=== PATIENT | male | born 1975 | race Caucasian/White ===

== ENCOUNTER 2016-07-07 08:14 | Inpatient (IN) | payer MEDICARE, MEDICAID ==
[~2016-07-07] VITALS: Ht 185.4 cm; Wt 98.0 kg
[~2016-07-07 08:14] MED LIST: MULT-666 PO; OXYC20TA4 PO; OXYC40TA46 PO
[2016-07-07 08:18] VITALS: BP 160/107; PULSE 109; RESP 18; O2SAT 97
--- NOTE | 2016-07-07 08:27 | ED.REPORT ---
HPI-Abd Pain M 40 and Over Date of Service July 07, 2016 ED Provider: Connor Valdivia MD 40 year old male with an extensive GI history notable for Crohn's disease, followed by Dr. Workman, presents to the ER complaining of four days of nausea and vomiting. He also reports new upper abdominal pain that is burning and pressure in character, and two days of constipation. Patient denies fever. He is well known to the emergency department, with a history of visits too numerous to count. His pain medications include Fentanyl 50mcg patch every three days, 15mg oxycodone PO five times daily, though he has been unable to take any oral medications in recent days due to current symptoms. Lately he has been trying marijuana to treat his Crohn's symptoms. Nursing Notes Stated Complaint: VOMITING/CROHNS DISEASE Chief Complaint: Male Abdominal Pain Nursing Notes Reviewed: Yes Allergies: Coded Allergies: Contrast Media (Verified Allergy, Severe, ANAPHYLAXIS, 01/19/16) NSAIDS (Non-Steroidal Anti-Inflamma (Verified Allergy, Severe, RESP. DISTRESS (PARTICULARLY IBUPROFEN), 01/19/16) Penicillins (Verified Allergy, Severe, RENAL FAILURE, 01/19/16) Sulfa (Sulfonamide Antibiotics) (Verified Allergy, Severe, hives, 01/19/16) iodine (Verified Allergy, Severe, anaphylaxis, 01/19/16) ketorolac (Verified Allergy, Severe, N/V, RAPID HR, RASH, 01/19/16) ondansetron HCl (Verified Allergy, Severe, fells like im crawling out of my skin, 01/19/16) metoclopramide HCl (Verified Allergy, Mild, JITTERY, 01/19/16) Iodipamide (Verified Allergy, Unknown, UNKNOWN, 01/19/16) ondansetron (Verified Adverse Reaction, Unknown, 01/19/16) Scheduled Multivitamin (Once Daily) 1 Each Tablet 1 EACH PO DAILY Oxycodone ER (Oxycontin) 40 Mg Tab.er.12h 40 MG PO BID Scheduled PRN oxyCODONE (oxyCODONE) 20 Mg Tablet 10-20 MG PO q4-6 hours PRN PRN For Pain General Time Seen by MD: 08:25 Chief Complaint Other (Vomiting) Hx Obtained From: Patient Arrived By: Walk-in Sudden in Onset?: No Onset Occurred: 4 days ago Symptom Duration: Since onset Location: : Abdomen upper Quality: Pressure, Sharp Past Medical History Past Medical History Notes: [facility] his pain medication Gastroenterology: Dr. Workman Past Medical History Past Medical History and accompanying surgical history 1. Crohn's disease since 2003 on Humira, followed by Dr Workman. a. High-grade structuring s/p 5 stricturoplasties of ileum. b. Right hemicolectomy with anastomosis by Dr. Orlando Hood (03/11/03). c. Resection of terminal ileum & proximal transverse colon with anastomosis, repair of enteroenteric fistula, small bowel stricturoplasty, and lysis of adhesions by Dr. Eli Hood (06/11/03). d. History of multiple small bowel obstructions related to adhesions s/p abdominal exploration and lysis of adhesions by Dr. Eli Hood on and 05/06/05 and 09/29/05. e. History of colon perforation after colonoscopy 2006. f. Colonoscopy (November 2012) by Dr Workman: Biopsies showed granuloma in random right colon biopsies with some mild crypt architectural distortion, left colon had an erosion and showed chronic colitis that was moderately active. His anastomosis showed ulceration with moderate chronic active inflammation and granulation tissue. 2. IV access procedures. a. Left subclavian Groshong placement by Dr. Eli Hood (04/16/03) and removal due to K. pneumonia and Coag neg Staph bacteremia (12/10/05). b. Right subclavian central line (12/21/05). c. Left double lumen subclavian Port-A-Cath (12/27/05) and due to E. faecalis, E. coli and E. cloacae bacteremia (01/20/06). d. Left internal jugular central venous catheter with power port, intraoperative fluoroscopy with interpretation by Dr. Carlos Umanzor (04/26/12). 3. Chronic pain with narcotic habituation, followed by [facility]. 4. History of MRSA line infection. 5. History of vertebral osteomyelitis. 6. Chronic anemia related to Crohn's. 7. History of C. difficile colitis in the past. 8. History of ventricular septal defect with chronic murmur. Past Surgical History See above Family History Reviewed, not relevant Smoking History Never Smoker Social History Alcohol Use: Denies alcohol use Drug Use: THC Other Social History: Local resident Ambulatory Status Independent Review of Systems Constitutional: Denies: Chills, Fever Respiratory: Denies: Non-productive cough, Shortness of breath GI: Reports: Abdominal pain, Constipation, Nausea, Vomiting, Denies: Bloody/tarry stool, Diarrhea, Hematemesis, Hematochezia Complete sys rev & neg: except as marked. Physical Exam Initial Vital Signs Vital Signs (First) Date Time Temp Pulse Resp B/P Pulse Ox O2 Delivery O2 Flow Rate FiO2 07/07/16 08:18 36.7 109 18 160/107 97 Room Air Initial VS: Reviewed Head / Eyes: Atraumatic, Normocephalic Neck: Supple, Non-tender, Full range of motion Extremities: Vascular intact, Neuro intact, No swelling, No tenderness Skin: Warm, Dry, No cyanosis Neurologic: Alert, Oriented, Nonfocal General/Constitutional: Awake, Alert, Well developed Appearance / Presentation: Positive: Uncomfortable Respiratory / Chest: Breath sounds NL, Breath sounds = bilat, No respiratory distress, No rales, No rhonchi, No wheezing Cardiovascular: Heart rate NL, Regular rhythm, Heart sounds NL, Peripheral circulation NL Abdomen: Soft, No guarding Tenderness/Guarding/Rebound: Positive: Tender diffuse (to light touch) Nearly absent bowel sounds. Interpretation & Diagnostics Lab Results Interpretation Result Diagram: 07/07/16 0910 07/07/16 0910 Test 07/07/16 09:10 White Blood Count 8.7th/mm3 (3.8-10.1) Red Blood Count 5.55mil/mm3 (4.40-5.80) Hemoglobin 16.2g/dL (13.8-17.2) Hematocrit 45.9% (41.0-50.0) Mean Corpuscular Volume 82.7fL (81-100) Mean Corpuscular Hemoglobin 29.2pg (27.0-35.0) Mean Corpuscular Hemoglobin Concent 35.3% (32.0-37.0) Red Cell Distribution Width 12.6% (12.3-15.4) Platelet Count 239bil/L (150-400) Neutrophils (%) (Auto) 80.1% (40-74) Lymphocytes (%) (Auto) 11.9% (14-46) Monocytes (%) (Auto) 6.9% (4-12) Eosinophils (%) (Auto) 0.7% (0-5) Basophils (%) (Auto) 0.2% (0-3) Sodium Level 139mEq/L (134-144) Potassium Level 3.8mEq/L (3.5-5.2) Chloride Level 102mEq/L (97-108) Carbon Dioxide Level 22mmol/L (18-29) Blood Urea Nitrogen 7mg/dL (6-24) Creatinine 0.76mg/dL (0.76-1.27) Estimat Glomerular Filtration Rate 120mL/min (>59) Glucose Level 112mg/dL (60-99) Lactic Acid Level 0.9mmol/L (0.4-2.0) Calcium Level 9.4mg/dL (8.5-10.1) Magnesium Level 1.9mg/dL (1.6-2.6) Total Bilirubin 0.9mg/dL (0.0-1.2) Aspartate Amino Transf (AST/SGOT) 18U/L (0-50) Alanine Aminotransferase (ALT/SGPT) 16U/L (0-44) Alkaline Phosphatase 104U/L (25-150) Total Protein 7.7g/dL (6.4-8.4) Albumin 4.3g/dL (3.4-5.0) Lipase 37U/L (13-60) X-Ray Abdominal Interpretation IMPRESSION: 1. Small bowel air-fluid levels in the left upper quadrant are nonspecific and may reflect a gastroenteritis or mild segmental ileus. No definite evidence of obstruction. Dictated by: Sung Bray M.D. on 07/07/2016 at 9:02 Approved by: Sung Bray M.D. on 07/07/2016 at 9:05 Study: 2 view Interpretation / Wet Read by: Interpret - Radiologist Re-Eval/Medical Decision Source of Hx: Old records Time of Eval: 10:06 Re-Evaluation/Progress Note: Discussed lab and imaging results and need for admission. Patient is amenable to the plan. All other questions addressed. Consultation #1: Referral / Consult Name: Carlo Espinal MD Consulted With: Hospitalist Call Returned at: 10:20 [employer]: Agrees with eval, Agrees with plan, Accepts admit Consultation #2: Referral / Consult Name: Deirdre Sin MD Consulted With: Surgeon Call Returned at: 10:04 Note: In surgery, will call back. Consultation #3: Referral / Consult Name: Jordan Mejia MD Consulted With: On-call physician (GI) Call Returned at: 10:31 Note: Agrees to consult. Counseled Regarding: Diagnosis, Lab results, Need for admission Discharge & Departure Primary Impression: SBO (small bowel obstruction) Additional Impression: Crohn's disease Disposition: ADMITTED TO HOSPITAL Vital Signs - All Vital Signs Date Time Temp Pulse Resp B/P Pulse Ox O2 Delivery O2 Flow Rate FiO2 07/07/16 08:18 36.7 109 18 160/107 97 Room Air )( All Prior VS Reviewed: Yes Condition: Stable Referrals: Clark Eldridge MD (PCP) Scribe Attestation Portions of this note were transcribed by Eliecer Boyce. I, Dr. Valdivia, personally performed the history, physical exam and medical decision-making; I reviewed and confirmed the accuracy of the information in the transcribed note. Signed by: Andrew Mckeon, 07/07/2016 at 10:31 copies to: Clark Eldridge MD, Kirk H MD July 07, 2016 08:27 ELIECER BOYCE July 07, 2016 08:36
[2016-07-07] MEDS ORDERED: 0.9% Sodium Chloride 1,000 ML IV ONE ×2 (08:49→08:50)
[2016-07-07] MEDS ORDERED: Pantoprazole 4 mg/mL 10 mL Inj IVPUSH ONE (08:50)
[2016-07-07] MEDS ORDERED: Promethazine Inj 50 MG in 0.9% Sodium Chloride-Pha MIX 100 ML IV ONE (08:50)
[2016-07-07 09:24] LABS: BASOPHILS % (AUTO) 0.2 % (0-3); EOSINOPHILS % (AUTO) 0.7 % (0-5); MONOCYTES % (AUTO) 6.9 % (4-12); Mean Corpuscular Hemoglobin 29.2 pg (27.0-35.0); Mean Corpuscular Volume 82.7 fL (81-100); NEUTROPHILS % (AUTO) 80.1 % (40-74); Platelet Count 239 bil/L (150-400)
[2016-07-07] MEDS: HYDROmorphone 1 mg/mL Inj IVPUSH PRN ×8 (09:27→23:23)
[2016-07-07 09:40] LABS: Magnesium 1.9 mg/dL (1.6-2.6)
--- NOTE | 2016-07-07 10:07 | DRSVH ---
PROCEDURE: X-RAY ACUTE ABDOMINAL SERIES ([id number]) INDICATIONS: Abdominal pain TECHNIQUE: One view chest and two views of the abdomen were acquired. COMPARISON: [facility], CR, XR ABD ACUTE SERIES 3VW, 02/10/2016, 12:25. FINDINGS: Surgical changes and devices: Left chest wall Port-A-Cath is stable in position. There are bowel sut ures in the right and abdomen. Chest: Lungs are clear. Heart size is normal. No pleural effusions. No pneumoperitoneum. Abdomen: There are a few small bowel air-fluid levels in the left upper quadrant within nondilated divine wel loops. Bowel gas pattern otherwise appears within normal limits. No suspicious calcifications. Bones: No suspicious bony lesions. IMPRESSION: 1. Small bowel air-fluid levels in the left upper quadrant are nonspecific and may reflect a gastroe nteritis or mild segmental ileus. No definite evidence of obstruction. Dictated by: Sung Bray M.D. on 07/07/2016 at 9:02 Approved by: Sung Bray M.D. on 07/07/2016 at 9:05
[2016-07-07] MEDS ORDERED: D5 0.45% NaCl + KCl 20 mEq/L 1,000 ML IV SCH (10:25)
[2016-07-07] MEDS ORDERED: Ondansetron 2 mg/mL 2 mL Inj IVPUSH PRN (10:25)
[2016-07-07] MEDS ORDERED: Alum-Mag Hydrox-Simeth 30 mL Suspension PO PRN (10:25)
--- NOTE | 2016-07-07 10:35 | PCM.HPMED ---
Subjective Date of Service July 07, 2016 Primary Provider: Admitting Physician: Primary Care Physician: Clark Eldridge MD Attending Physician: Chief Complaint: Abdominal pain, nausea/vomiting/no stool or urine in the last 24 hours History of Present Illness: 40-year-old male with long history of issues/hospitalization/bowel obstruction secondary to his Crohn's disease whose only self manage his way through multiple partial bowel obstructions was doing so for at least the last 36 hours then today he felt sudden worsening cramping pain that far exceeded what he was going through previously. In addition to this he had not had any significant urine or stool output in the last 36-48 hours. These 2 factors combined made him a lot to come to the emergency room today. He had no fever/chills no blood or black in the stool. Does not feel like he is having a Crohn's flare. He is not on any immunologic or other agents to treat Crohn's disease. Currently just narcotics. Review of Systems: Gen.: No fevers chills weight loss weight gain Eyes: no visual disturbances or blurring vision HEENT: No nose/throat drainage, no pain in ears or throat, no hearing loss Lymph: No lymph nodes noted Cardiac: No chest pain, orthopnea, PND, palpitations , pedal edema or dyspnea on exertion Pulmonary: no cough, wheezing or bringing up of sputum GI: No anorexia nausea vomiting blood or black in the stool : no dysuria hematuria urinary frequency or decrease in urine output Musculoskeletal: Joint swelling no joint pain no new muscle aches or back pain Neuro: No syncope, seizures no loss of consciousness no new focal weakness, numbness or tingling Psychiatric: New new anxiety insomnia or depression Endocrine: No new heat or cold intolerances polyuria or polydipsia Hematology: No lymphadenopathy or easy bleeding or bruising noted skin: No new rashes, stasis dermatitis Allergies Coded Allergies: Contrast Media (Verified Allergy, Severe, ANAPHYLAXIS, 01/19/16) NSAIDS (Non-Steroidal Anti-Inflamma (Verified Allergy, Severe, RESP. DISTRESS (PARTICULARLY IBUPROFEN), 01/19/16) Penicillins (Verified Allergy, Severe, RENAL FAILURE, 01/19/16) Sulfa (Sulfonamide Antibiotics) (Verified Allergy, Severe, hives, 01/19/16) iodine (Verified Allergy, Severe, anaphylaxis, 01/19/16) ketorolac (Verified Allergy, Severe, N/V, RAPID HR, RASH, 01/19/16) ondansetron HCl (Verified Allergy, Severe, fells like im crawling out of my skin, 01/19/16) metoclopramide HCl (Verified Allergy, Mild, JITTERY, 01/19/16) Iodipamide (Verified Allergy, Unknown, UNKNOWN, 01/19/16) ondansetron (Verified Adverse Reaction, Unknown, 01/19/16) Home Medications Multivitamin (Once Daily) 1 Each Tablet 1 EACH PO DAILY Oxycodone ER (Oxycontin) 40 Mg Tab.er.12h 40 MG PO BID Scheduled PRN oxyCODONE (oxyCODONE) 20 Mg Tablet 10-20 MG PO q4-6 hours PRN PRN For Pain PMH Past Medical History and accompanying surgical history obtained from chart 1. Crohn's disease since 2003, previously on Humira until 12/2015 month ago, followed by Dr Workman. Still waiting to get in at [facility] with Dr George Rod a. High-grade structuring s/p 5 stricturoplasties of ileum. b. Right hemicolectomy with anastomosis by Dr. Eli Hood (03/11/03). c. Resection of terminal ileum & proximal transverse colon with anastomosis (06/11/03). d. History of multiple small bowel obstructions related to adhesions e. History of colon perforation after colonoscopy 2006. f. Colonoscopy (Nov 2012): Biopsies showed granuloma in R colon, Left colon erosions and chronic colitis moderately active. Anastomosis showed ulceration with moderate chronic active inflammation and granulation tissue. 2. IV access procedures. a. Left subclavian Groshong placement (2003) & removal due to K. pneumonia & Coag neg Staph bacteremia (2005). b. Right subclavian central line (12/21/05). c. Left double lumen subclavian Port-A-Cath (12/27/05) and due to E.faecalis , E. coli and E. cloacae bacteremia (01/20/06). d. Left internal jugular central venous catheter with power port (04/26/12). 3. Chronic pain with narcotic habituation, followed by [facility] pain clinic. 4. History of MRSA line infection. 5. History of vertebral osteomyelitis. 6. Chronic anemia related to Crohn's. 7. History of C. difficile colitis in the past. 8. History of ventricular septal defect with chronic murmur. Surgical History 1. Right colectomy with anastomosis on March 11, 2003 2. Left subclavian Groshong placement on April 16, 2003 3. Resection of terminal ileum and transverse colon with anastomosis on June 11, 2003 4. Abdominal exploration on May 06, 2005 and September 29, 2005 5. Removal of left subclavian Groshong to bacteremia on December 10, 2005 6. Right subclavian central line on December 21, 2005 7. Left double-lumen Port-A-Cath on February 26, 2005 8. Left internal jugular central venous catheter with PowerPort by Dr. Umanzor on April 26, 2012 Family History mother alive,osteoarthritis of neck he doesn't know his biological father Social History Hx Alcohol Use: No Hx Substance Use: Yes (medical marijuana Smoked a couple of days ago and didn[ t work well) Hx Tobacco Use: Yes Smoking Status: Never Smoker Social History Hx Alcohol Use: No Hx Substance Use: Yes (marijuana for nausea) Hx Tobacco Use: Yes Smoking Status: Never Smoker Exam Vital Signs Vital Sign - Last Date Time Temp Pulse Resp B/P Pulse Ox O2 Delivery O2 Flow Rate FiO2 07/07/16 08:18 36.7 109 18 160/107 97 Room Air Exam Gen.- A+ O 3, mod distress. Heavy male lying in bed. Obvious pain when moved /touch Eyes- open conjunctiva clear, pupils equal nonicteric Mouth- oral mucosa moist, no exudate ENT- ears normal, nose normal Neck- supple/trach midline CVS- RRR no murmur or gallop Lungs- CTA GI- some bowel sounds, diffuse tenderness, positive rebound Musc- moving 4 no obvious deformity Neuro- cranial nerves II through XII intact to gross examination, nonfocal Skin- warm and dry, no rashes/lesions/wounds noted Psych- pleasant and appropriate, Lab and Diagnostics Result Diagram: 07/07/16 0910 07/07/16 0910 X-Rays, CTs and MRIs PROCEDURE: X-RAY ACUTE ABDOMINAL SERIES ([id number]) 1. Small bowel air-fluid levels in the left upper quadrant are nonspecific and may reflect a gastroenteritis or mild segmental ileus. No definite evidence of obstruction. Dictated by: Sung Bray M.D. on 07/07/2016 at 9:02 Assessment & Plan 40-year-old male with a history of bowel issues secondary to long-standing Crohn 's disease and complications thereof dense with what appears to be early partial small bowel obstruction. He has an NG tube in place and is receiving IV pain medications and anti-emetics. #SBO- as above, surgery has been consulted, thanks for assistance managing complex pt -Possible also part constipation from chronic narcotics. I did discuss in the future trial of methylnaltrexone if his bowels are simply slowing down and he is having constipation, however in the setting of bowel obstruction it is contraindicated at this time. -NG tube in place to suction -D5 NS w/ 20meq KCl 100mls/hr fluid/lyte support, follow/replace as needed #Crohn's disease- not on any meds, GI has been consulted, thanks for assistance managing complex pt #Continuous opiate dependence- patient is continuing on his fentanyl patch however he seems minimally affected by generous dosages of narcotics every been administered. I will continue those for now. Needing it routinely we may shift him over to a [employer]. #Prophylaxis- DVT with SCDs/enoxaparin, GI with famotidine #Disposition- full code from home/independent living Carlo Espinal MD July 07, 2016 10:35
[2016-07-07] MEDS ORDERED: OXYC5CAP4 PO (11:05)
[2016-07-07] MEDS ORDERED: FENT1PAT9 TRANSDERM (11:06)
[2016-07-07 11:22] VITALS: BP 166/103; PULSE 57; RESP 16; O2SAT 99
[2016-07-07 11:24] VITALS: BP 166/103; PULSE 57; RESP 16; O2SAT 99
[2016-07-07] MEDS: 0.9% Sodium Chloride 250 ML IV SCH ×2 (13:34→14:53)
[2016-07-07] MEDS ORDERED: Sodium Chloride LOK Flush 10 mL Syringe IVFLUSH PRN ×2 (13:35)
[2016-07-07] MEDS ORDERED: HepLOK Flush 100 unit/mL 5 mL Inj IVFLUSH PRN (13:35)
--- NOTE | 2016-07-07 13:38 | PCM.CHPMED ---
Subjective Date of Service: July 07, 2016 Primary Physician: Admitting Physician: Carlo Espinal MD Primary Care Physician: Clark Eldridge MD Attending Physician: Carlo Espinal MD Chief Complaint: Chief Complaint: Nausea and vomiting History of Present Illness: GI consult note 40-year-old male with a history of Crohn's disease with resection of terminal ileum and proximal transverse colon (among others) presents to the emergency department 4 days of severe nausea with nonbloody emesis. Patient states this has been a chronic problem and every few months it regresses enough to come to the emergency department. On day 2 or 3 of the vomiting the patient developed severe central abdominal pain is very tender to the touch. At this time he also began vomiting more bilious emesis. Patient tried the promethazine and marijuana without effect. Patient also states that he has not had a bowel movement now for 2 days and denies any recent diarrhea or hematochezia/melena. Patient denies fever, chills, chest pain, shortness of breath, or changes in urinary habits. Patient does attest to upper respiratory congestion without fever or cough. Patient is also chronic pain patient on oxycodone and OxyContin as an outpatient. Patient is followed by Dr. Warner for his Crohn's disease at the last appointment being in June 2014. Previously he was tried on mesalamine and Humira but states that mesalamine was ineffective and Humira side effects were too severe for him to continue the medication. Over the last couple of beers he has been managing his Crohn's with dietary changes and with marijuana and promethazine to control nausea and vomiting. Last colonoscopy was [address] Kennedy and identified stricture at the anastomosis site. In 2014 the patient says he underwent patency pill but do not see the results in [facility]. Emergency department patient had an abdominal x-ray which did not show definite evidence of obstruction. Patient was given an NG tube and promethazine that has somewhat relieved his nausea. His blood work was relatively benign with very mild left shift but no leukocytosis,mild hyperglycemia GI was consulted due to Crohn's and recurrent nausea and vomiting. Review of Systems: See history of present illness PMH Past Medical History Past Medical History and accompanying surgical history 1. Crohn's disease since 2003 on Humira, followed by Dr Workman. a. High-grade structuring s/p 5 stricturoplasties of ileum. b. Right hemicolectomy with anastomosis by Dr. Orlando Hood (03/11/03). c. Resection of terminal ileum & proximal transverse colon with anastomosis, repair of enteroenteric fistula, small bowel stricturoplasty, and lysis of adhesions by Dr. Eli Hood (06/11/03). d. History of multiple small bowel obstructions related to adhesions s/p abdominal exploration and lysis of adhesions by Dr. Eli Hood on and 05/06/05 and 09/29/05. e. History of colon perforation after colonoscopy 2006. f. Colonoscopy (November 2012) by Dr Workman: Biopsies showed granuloma in random right colon biopsies with some mild crypt architectural distortion, left colon had an erosion and showed chronic colitis that was moderately active. His anastomosis showed ulceration with moderate chronic active inflammation and granulation tissue. 2. IV access procedures. a. Left subclavian Groshong placement by Dr. Eli Hood (04/16/03) and removal due to K. pneumonia and Coag neg Staph bacteremia (12/10/05). b. Right subclavian central line (12/21/05). c. Left double lumen subclavian Port-A-Cath (12/27/05) and due to E. faecalis, E. coli and E. cloacae bacteremia (01/20/06). d. Left internal jugular central venous catheter with power port, intraoperative fluoroscopy with interpretation by Dr. Carlos Umanzor (04/26/12). 3. Chronic pain with narcotic habituation, followed by [facility] pain clinic. 4. History of MRSA line infection. 5. History of vertebral osteomyelitis. 6. Chronic anemia related to Crohn's. 7. History of C. difficile colitis in the past. 8. History of ventricular septal defect with chronic murmur. Hx Any Other Health Problems?: NoHx Diabetes: No Surgical History See medical history Home Medications From [facility] Folic acid 1 mg tablet daily Oxycodone 20 mg tablet up to 5 times daily OxyContin 40 mg tablet up to 2 daily Promethazine 25 mg tablets every 6 hours Allergies: Coded Allergies: Contrast Media (Verified Allergy, Severe, ANAPHYLAXIS, 01/19/16) NSAIDS (Non-Steroidal Anti-Inflamma (Verified Allergy, Severe, RESP. DISTRESS (PARTICULARLY IBUPROFEN), 01/19/16) Penicillins (Verified Allergy, Severe, RENAL FAILURE, 01/19/16) Sulfa (Sulfonamide Antibiotics) (Verified Allergy, Severe, hives, 01/19/16) iodine (Verified Allergy, Severe, anaphylaxis, 01/19/16) ketorolac (Verified Allergy, Severe, N/V, RAPID HR, RASH, 01/19/16) ondansetron HCl (Verified Allergy, Severe, fells like im crawling out of my skin, 01/19/16) metoclopramide HCl (Verified Allergy, Mild, JITTERY, 01/19/16) Iodipamide (Verified Allergy, Unknown, UNKNOWN, 01/19/16) ondansetron (Verified Adverse Reaction, Unknown, 01/19/16) Family History Family History Patient denies any family history of colon cancer, Crohn's or ulcerative colitis , or autoimmune diseases. Social History Hx Alcohol Use: NoHx Substance Use: Yes (marijuana for nausea)Hx Tobacco Use: Yes Smoking Status: Former Smoker Exam Vital Signs Vital Sign - Last Date Time Temp Pulse Resp B/P Pulse Ox O2 Delivery O2 Flow Rate FiO2 07/07/16 11:24 36.7 57 16 166/103 99 Room Air General: Alert, Oriented X3, Cooperative Head: Normal Eyes: PERRLA Nose: Bluish, swollen membranes Mouth: Mucous Membr Moist/[place] Chest & Lungs: Chest Wall Normal, Clear to auscultation & percussion Cardiovascular: Exam Unremarkable, Regular Rate/Rhythm Abdomen: Tender (very tender to palpation), Non-distended, Guarding, Normoactive bowel tones Musculoskeletal: Unremarkable Extremities: No cyanosis/clubbing/edma bilat Neurological: Grossly Neurologically Intact Lab and Diagnostics Result Diagram: 07/07/16 0910 07/07/16 0910 Assessment & Plan Assessment Assessment: 40-year-old male with extensive history of abdominal surgeries including terminal ileum and proximal transverse colon resections/anastomosis and 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 Given the patient's extensive history and high likelihood of stricture formation around the site of anastomosis it is likely the patient has a small bowel obstruction most likely from prior adhesions from prior surgery. Other differentials could include obstipation secondary to chronic narcotic use, or cyclical vomiting syndrome for use of marijuana over the last 6-12 months. Patient denies any fever, there is no leukocytosis, and his abdominal pain is likely secondary to the persistent vomiting, suggesting that this is not an infectious process. Patient 's last colonoscopy was 3 years ago and he reportedly underwent patency pill in 2014 to evaluate stricture at anastomotic site but I am unable to find the records at this time. Recommendations: - NPO except for medications - IV fluids - pain control per hospitalist team. recommend avoiding narcotic medications as much as possible - Keep appointment with for management of Crohn's disease - We will continue to follow. Thank you for the opportunity to take part in the care of this patient Problems: Resuscitation Status: CPR: Attempt Resuscitation Attending Statement agree with assessment and plan above Dick Cano DO July 07, 2016 13:38 Jordan Mejia MD July 08, 2016 07:57
--- NOTE | 2016-07-07 14:01 | NUR ---
Admit Pt transferred to [facility] Rm 2014 at approx. 1115 via gursherry from the ED. Primary RN received report from Paul LONGORIA. Pt was able to ambulate w/ steady gait to hospital bed. Portacath accessed in the ED, D5 1/2NS w/ 20meqs K+. NG placed in EG, hooked up to continuous suction. Pt reports 8/10 pain. IVP dilaudid administered. Pt oriented to room and call light. Addendum: 07/07/16 at 1700 by YOSELYN ADAM RN Agree w/ above note by DELFINA
[2016-07-07] MEDS: D5 0.9% NaCl + KCl 20 mEq/L 1,000 ML IV SCH (14:05)
[2016-07-07] MEDS: Promethazine Inj 50 MG in 0.9% Sodium Chloride-Pha MIX 100 ML IV PRN (14:53)
[2016-07-07 19:20] VITALS: BP 155/91; PULSE 58; RESP 16; O2SAT 97
[2016-07-07] MEDS: Famotidine Inj 20 MG in IV Premix 1 EACH IV SCH (20:43)
[2016-07-07 23:50] VITALS: BP 143/89; PULSE 56; RESP 16; O2SAT 97
[2016-07-08] MEDS: HYDROmorphone 1 mg/mL Inj IVPUSH PRN ×10 (02:02→23:30)
[2016-07-08] MEDS: Promethazine Inj 50 MG in 0.9% Sodium Chloride-Pha MIX 100 ML IV PRN ×4 (02:35→21:50)
[2016-07-08 04:45] VITALS: BP 136/93; PULSE 63; RESP 16; O2SAT 98
[2016-07-08] MEDS: D5 0.9% NaCl + KCl 20 mEq/L 1,000 ML IV SCH ×3 (05:14→16:57)
[2016-07-08 05:38] LABS: Mean Corpuscular Hemoglobin 28.8 pg (27.0-35.0); Mean Corpuscular Volume 81.3 fL (81-100)
--- NOTE | 2016-07-08 06:08 | NUR ---
Pain/NG-tube Pt with continuous abdominal pain at 8/10 which decreases with IV Dilaudid to 6/10. Dilaudid was given about every 2.5 to 3 hrs. Phenergan and Benadryl given x1 each. Output from NG tube 250cc, BT decreased but present.
[2016-07-08] MEDS: Famotidine Inj 20 MG in IV Premix 1 EACH IV SCH ×2 (08:12→21:04)
--- NOTE | 2016-07-08 11:04 | PCM.PNMED ---
Subjective Date of Service July 08, 2016 Subjective GI progress note Overnight the patient improved. Much better this morning but still with very tender abdominal wall. Nausea is well controlled, NG tube still in place. No bowel movements today. Pain well controlled Exam Vital Signs Vital Sign - Last Date Time Temp Pulse Resp B/P Pulse Ox O2 Delivery O2 Flow Rate FiO2 07/08/16 04:45 36.3 63 16 136/93 98 Room Air Intake and Output 07/07/16 07/07/16 07/08/16 Cumulative From/Thru 15:00 23:00 07:00 07/07/16 08:18 - 07/08/16 05:36 Intake Total 2000 ml 376 ml 710 ml 3086 ml Output Total 450 ml 1300 ml 1750 ml Balance 2000 ml -74 ml -590 ml 1336 ml Intake Oral 0 ml 0 ml 0 ml IV Total 2000 ml 376 ml 710 ml 3086 ml Output Urine Total 400 ml 1050 ml 1450 ml Gastric Drainage Total 50 ml 250 ml 300 ml # Bowel Movements 0 0 0 Exam General: Alert, Oriented X3, Cooperative Chest & Lungs: Chest Wall Normal, Clear to auscultation & percussion Cardiovascular: Exam Unremarkable, Regular Rate/Rhythm Abdomen: Tender (very tender to palpation), Non-distended, Guarding, Normoactive bowel tones Extremities: No cyanosis/clubbing/edma bilat IVs and Medications Medications Reviewed: Medications were reviewed in detail Lab and Diagnostics Result Diagram: 07/08/16 0510 07/08/16 0510 X-Rays, CTs and MRIs PROCEDURE: X-RAY ACUTE ABDOMINAL SERIES ([id number]) 1. Small bowel air-fluid levels in the left upper quadrant are nonspecific and may reflect a gastroenteritis or mild segmental ileus. No definite evidence of obstruction. Dictated by: Sung Bray M.D. on 07/07/2016 at 9:02 Assessment & Plan Assessment: 40-year-old male with extensive history of abdominal surgeries including terminal ileum and proximal transverse colon resections/anastomosis and 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 Given the patient's extensive history and high likelihood of stricture formation around the site of anastomosis it is likely the patient has a small bowel obstruction most likely from prior adhesions from prior surgery. Other differentials could include obstipation secondary to chronic narcotic use, or cyclical vomiting syndrome for use of marijuana over the last 6-12 months. Patient denies any fever, there is no leukocytosis, and his abdominal pain is likely secondary to the persistent vomiting, suggesting that this is not an infectious process. Patient 's last colonoscopy was 3 years ago and he reportedly underwent patency pill in 2014 to evaluate stricture at anastomotic site but I am unable to find the records at this time. Patient much improved this morning. Recommendations: - npo except meds - ivfs - pain control per hospitalist team. try to limit amount of narcotics - We will continue to follow. Resuscitation Status: CPR: Attempt Resuscitation Dick Cano DO July 08, 2016 11:04 Jordan Mejia MD July 08, 2016 12:21
[2016-07-08 11:13] VITALS: BP 142/97; PULSE 78; RESP 18; O2SAT 97
--- NOTE | 2016-07-08 13:51 | PCM.PNMED ---
Subjective Date of Service July 08, 2016 Subjective Still nauseated and tender. Better than yesterday but are still output. No shortness of breath no chest pain. Exam Vital Signs Vital Sign - Last Date Time Temp Pulse Resp B/P Pulse Ox O2 Delivery O2 Flow Rate FiO2 07/08/16 11:13 36.6 78 18 142/97 97 Room Air Intake and Output 07/07/16 07/07/16 07/08/16 Cumulative From/Thru 15:00 23:00 07:00 07/07/16 08:18 - 07/08/16 05:36 Intake Total 2000 ml 376 ml 710 ml 3086 ml Output Total 450 ml 1300 ml 1750 ml Balance 2000 ml -74 ml -590 ml 1336 ml Intake Oral 0 ml 0 ml 0 ml IV Total 2000 ml 376 ml 710 ml 3086 ml Output Urine Total 400 ml 1050 ml 1450 ml Gastric Drainage Total 50 ml 250 ml 300 ml # Bowel Movements 0 0 0 Exam Gen.- A+ O 3, min distress. Heavy male lying in bed. Obvious pain when moved /touch Eyes- open conjunctiva clear, pupils equal nonicteric ENT- ears normal, nose normal Neck- supple/trach midline CVS- RRR no murmur or gallop Lungs- CTA GI- some bowel sounds, diffuse tenderness, rebound has improved Musc- moving 4 no obvious deformity Neuro- cranial nerves II through XII intact to gross examination, nonfocal Skin- warm and dry, no rashes/lesions/wounds noted Psych- pleasant and appropriate, Lab and Diagnostics Result Diagram: 07/08/16 0510 07/08/16 0510 X-Rays, CTs and MRIs PROCEDURE: X-RAY ACUTE ABDOMINAL SERIES ([id number]) 1. Small bowel air-fluid levels in the left upper quadrant are nonspecific and may reflect a gastroenteritis or mild segmental ileus. No definite evidence of obstruction. Dictated by: Sung Bray M.D. on 07/07/2016 at 9:02 Assessment & Plan 40-year-old male with a history of bowel issues secondary to long-standing Crohn 's disease and complications thereof dense with what appears to be early partial small bowel obstruction. He has an NG tube in place and is receiving IV pain medications and anti-emetics. 07/08 patient clinically improved but they are still output. Continue entire schedule patient remains nothing by mouth. He is still not having any gas or output. #SBO- and think there is an indication for surgery, thank you GI for seeing patient. -Possible also part constipation from chronic narcotics. I did discuss in the future trial of methylnaltrexone if his bowels are simply slowing down and he is having constipation, however in the setting of bowel obstruction it is contraindicated at this time. -NG tube in place to suction -D5 NS w/ 20meq KCl 100mls/hr fluid/lyte support, follow/replace as needed #Crohn's disease- not on any meds, GI has been consulted, thanks for assistance managing complex pt #Continuous opiate dependence- patient is continuing on his fentanyl patch however he seems minimally affected by generous dosages of narcotics every been administered. I will continue those for now. Needing it routinely we may shift him over to a GOLDBEATER. #Prophylaxis- DVT with SCDs/enoxaparin, GI with famotidine #Disposition- full code from home/independent living Resuscitation Status: CPR: Attempt Resuscitation Carlo Espinal MD July 08, 2016 13:51
--- NOTE | 2016-07-08 15:33 | NUR ---
Social work note - Initial Assessment Kendrick Campbell is a 40 yr old admitted for SBO - hx of Crohn's disease. EMR reviewed: Pt has Medicare and [employer]SH[employer]. Pt's PCP is Clark Eldridge. No VA or LTC insurance. Pt states that his aunt is his DPOA - WOODWORKER asked for paperwork for chart - he will ask his aunt to bring it in. See attached CM initial assessment. WOODWORKER met with pt - introduced D/C planning and explained SW role. Pt lives in [place] with his aunt and his two teenage children. He does not work, is on disability. He is independent at baseline - drives, no DME. He plans to d/c home with family when medically stable. Pt states that he is followed by [facility] in [place] and is on a pain contract with them. Pt denies any needs. WOODWORKER will follow if needs arise. Plan: Home with family in [place] - No needs identified. SHE Lemon Addendum: 07/08/16 at 1538 by KENDY BAILEY Amended: Links added.
[2016-07-08 16:50] VITALS: BP 148/88; PULSE 77; RESP 18; O2SAT 96
--- NOTE | 2016-07-08 16:51 | NUR ---
Pain/Nausea Pts pain continues to be controlled with Q2 IV Dilaudid. Pt rates pain between 7-9/10 and states at a 6/10 he would be comfortable. Pt continues to have nausea. IV Phenergan and Benadryl given. NG tube to suction with dark green output. Bowel tones hypoactive and pt stated that he has passed some gas. Will continue to monitor.
[2016-07-08 19:36] VITALS: BP 125/81; PULSE 67; RESP 18; O2SAT 98
[2016-07-09] MEDS: HYDROmorphone 1 mg/mL Inj IVPUSH PRN ×6 (01:25→14:36)
[2016-07-09] MEDS: D5 0.9% NaCl + KCl 20 mEq/L 1,000 ML IV SCH ×2 (03:50→11:02)
[2016-07-09] MEDS: Promethazine Inj 50 MG in 0.9% Sodium Chloride-Pha MIX 100 ML IV PRN ×2 (03:50→17:58)
--- NOTE | 2016-07-09 04:13 | NUR ---
Pain/nausea Pt continues to report pain 7-8 and requires 2mg Dilaudid IVP q2 hrs for pain control. Pt reporting relief but that pain continues to come back especially when trying to pass gas. IV Phenergan along with Benadryl given to help with nausea. NG tube at continuous suction with clear/light green output.
[2016-07-09 05:05] VITALS: BP 148/106; PULSE 89; RESP 16; O2SAT 95
[2016-07-09] MEDS: Famotidine Inj 20 MG in IV Premix 1 EACH IV SCH ×2 (08:01→20:24)
--- NOTE | 2016-07-09 10:41 | PCM.PNMED ---
Subjective Date of Service July 09, 2016 Subjective GI progress note Overnight the patient continued to have abdominal pain and nausea and vomiting. Still unable to take by mouth. This morning says he is feeling better and is only drinking water. He states he could take pills. His pain was well- controlled with Dilaudid IV Exam Vital Signs Vital Sign - Last Date Time Temp Pulse Resp B/P Pulse Ox O2 Delivery O2 Flow Rate FiO2 07/09/16 05:05 36.6 89 16 148/106 95 Room Air Intake and Output 07/08/16 07/08/16 07/09/16 Cumulative From/Thru 15:00 23:00 07:00 07/07/16 08:18 - 07/09/16 05:30 Intake Total 670 ml 998 ml 4754 ml Output Total 1900 ml 1075 ml 4725 ml Balance -1230 ml -77 ml 29 ml Intake Oral 0 ml 0 ml 0 ml IV Total 670 ml 998 ml 4754 ml Output Urine Total 1600 ml 825 ml 3875 ml Gastric Drainage Total 300 ml 250 ml 850 ml # Bowel Movements 0 0 Exam General: Alert, Oriented X3, Cooperative Chest & Lungs: Chest Wall Normal, Clear to auscultation & percussion Cardiovascular: Exam Unremarkable, Regular Rate/Rhythm Abdomen: Less tender than yesterday, Non-distended, Guarding, Normoactive bowel tones Extremities: No cyanosis/clubbing/edma bilat IVs and Medications Medications Reviewed: Medications were reviewed in detail Lab and Diagnostics Result Diagram: 07/08/16 0510 07/08/16 0510 X-Rays, CTs and MRIs PROCEDURE: X-RAY ACUTE ABDOMINAL SERIES ([id number]) 1. Small bowel air-fluid levels in the left upper quadrant are nonspecific and may reflect a gastroenteritis or mild segmental ileus. No definite evidence of obstruction. Dictated by: Sung Bray M.D. on 07/07/2016 at 9:02 Assessment & Plan Assessment 40-year-old male with extensive history of abdominal surgeries including terminal ileum and proximal transverse colon resections/anastomosis and 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 Given the patient's extensive history and high likelihood of stricture formation around the site of anastomosis it is likely the patient has a small bowel obstruction most likely from prior adhesions from prior surgery. Other differentials could include obstipation secondary to chronic narcotic use, or cyclical vomiting syndrome for use of marijuana over the last 6-12 months. Patient denies any fever, there is no leukocytosis, and his abdominal pain is likely secondary to the persistent vomiting, suggesting that this is not an infectious process. Patient 's last colonoscopy was 3 years ago and he reportedly underwent patency pill in 2014 to evaluate stricture at anastomotic site but I am unable to find the records at this time. Patient summary much progress since yesterday. Recommendations: - npo except meds - ivfs - pain control per hospitalist team; attempt to limit narcotic use - We will continue to follow Resuscitation Status: CPR: Attempt Resuscitation Dick Cano DO July 09, 2016 10:41 Jordan Mejia MD July 09, 2016 11:23
[2016-07-09] MEDS: 0.9% Sodium Chloride 250 ML IV SCH ×2 (11:02→17:58)
--- NOTE | 2016-07-09 14:30 | NUR ---
Pain/Nausea/Activity Pt continues to be 8/10 on pain scale. IV Dilaudid working well for pain Q3 hours. Pt tolerating NG tube being clamped with some nausea but states that the nausea is slightly better. Pt up and ambulating in the room. IV has been stopped multiple times by pt. Pt has also been observed talking to himself and told the TELEPHONE SOLICITOR SUPERVISOR that she needed to be careful because "[place]." Pt alert and oriented when RN came into to the room to asses but talks to himself often. Pt c/o feeling flushed. Temp taken and afebrile. Will continue to monitor.
[2016-07-09 14:32] VITALS: BP 167/107; PULSE 112; RESP 20; O2SAT 92
--- NOTE | 2016-07-09 14:51 | NUR ---
NG Tube NG tube clamped per orders at 0950. Came into the pt's room at 1445 to give pain medication and the pt stated, " I sneezed and my NG tube came out." NG tube was sitting on the table. NG tube intact. notified.
--- NOTE | 2016-07-09 15:06 | PCM.PNMED ---
Subjective Date of Service July 09, 2016 Subjective Patient says his abdomen still hurts and winces when I get near it. He is passing gas but has not had a bowel movement. In the course of today status reported to me begun hallucinating and talking strangely. Now later in the day he "sneezed" and his NG tube came out... Exam Vital Signs Vital Sign - Last Date Time Temp Pulse Resp B/P Pulse Ox O2 Delivery O2 Flow Rate FiO2 07/09/16 14:32 36.7 112 20 167/107 92 Room Air Intake and Output 07/08/16 07/08/16 07/09/16 Cumulative From/Thru 15:00 23:00 07:00 07/07/16 08:18 - 07/09/16 05:30 Intake Total 670 ml 998 ml 4754 ml Output Total 1900 ml 1075 ml 4725 ml Balance -1230 ml -77 ml 29 ml Intake Oral 0 ml 0 ml 0 ml IV Total 670 ml 998 ml 4754 ml Output Urine Total 1600 ml 825 ml 3875 ml Gastric Drainage Total 300 ml 250 ml 850 ml # Bowel Movements 0 0 Exam Gen.- A+ O 3, min distress. Heavy male lying in bed. I witnessed the patient ambulating around the unit Eyes- open conjunctiva clear, pupils equal nonicteric ENT- ears normal, nose normal Neck- supple/trach midline CVS- RRR no murmur or gallop Lungs- CTA GI- some bowel sounds, diffuse tenderness, rebound has improved Musc- moving 4 no obvious deformity Neuro- cranial nerves II through XII intact to gross examination, nonfocal Skin- warm and dry, no rashes/lesions/wounds noted Psych- pleasant and appropriate, Lab and Diagnostics Result Diagram: 07/08/16 0510 07/08/16 0510 X-Rays, CTs and MRIs PROCEDURE: X-RAY ACUTE ABDOMINAL SERIES ([id number]) 1. Small bowel air-fluid levels in the left upper quadrant are nonspecific and may reflect a gastroenteritis or mild segmental ileus. No definite evidence of obstruction. Dictated by: Sung Bray M.D. on 07/07/2016 at 9:02 Assessment & Plan 40-year-old male with a history of bowel issues secondary to long-standing Crohn 's disease and complications thereof dense with what appears to be early partial small bowel obstruction. He has an NG tube in place and is receiving IV pain medications and anti-emetics. 07/08 patient clinically improved but they are still output. Continue entire schedule patient remains nothing by mouth. He is still not having any gas or output. 07/09 patient continues to use IV Dilaudid/Phenergan, he began hallucinating in the middle of the day, he is requesting ice chips and food, he "sneezed" and the NG tube came out around 1500. I am stopping the IV Dilaudid switching to IV Tylenol I would use Dilaudid sparingly, if patient continues to have issues low tolerance for Gastrografin CT to best elucidate bowel anatomy. For now I am hopeful if he weans off he is passing gas we may just advance his diet. If his situation should prove resistant to this approach and I would get the Gastrografin CT. #SBO- and think there is an indication for surgery, thank you GI for seeing patient. -Possible also part constipation from chronic narcotics. I did discuss in the future trial of methylnaltrexone if his bowels are simply slowing down and he is having constipation, however in the setting of bowel obstruction it is contraindicated at this time. -NG tube in place to suction -D5 NS w/ 20meq KCl 100mls/hr fluid/lyte support, follow/replace as needed #Crohn's disease- not on any meds, GI has been consulted, thanks for assistance managing complex pt #Continuous opiate dependence- patient is continuing on his fentanyl patch however he seems minimally affected by generous dosages of narcotics every been administered. I will continue those for now. Needing it routinely we may shift him over to a [employer]. #Prophylaxis- DVT with SCDs/enoxaparin, GI with famotidine #Disposition- full code from home/independent living Resuscitation Status: CPR: Attempt Resuscitation Carlo Espinal MD July 09, 2016 15:06
[2016-07-09 16:38] VITALS: BP 154/99; PULSE 93
[2016-07-09] MEDS ORDERED: HYDROmorphone 1 mg/mL Inj IVPUSH ONE (18:15)
[2016-07-09] MEDS: Acetaminophen IV 1,000 MG in IV Premix 1 EACH IV PRN (18:31)
--- NOTE | 2016-07-09 18:58 | NUR ---
BM Pt had a smear of a BM with markel red blood. notified.
[2016-07-09 20:38] VITALS: BP 147/101; PULSE 112; RESP 20; O2SAT 94
--- NOTE | 2016-07-09 21:49 | DRSVH ---
PROCEDURE: CT ABDOMEN AND PELVIS WITHOUT CONTRAST ([id number]) INDICATIONS: sbo TECHNIQUE: After the administration of oral contrast, 5 mm thick sections acquired from the diaphragms to the sy mphysis. 5 mm coronal and sagittal reformats were performed. For radiation dose reduction, the foll owing was used: automated exposure control, adjustment of mA and/or kV according to patient size. COMPARISON: [facility], CT, CT ABD PELVIS WO CON, 01/21/2016, 15:05. Chest abdomen and p ethan radiographs from 07/07/2016. FINDINGS: Image quality: Excellent. ABDOMEN: Lung bases: Lung bases are clear. Heart size is normal. Solid organs: Liver and spleen are normal in size. Gallbladder is present. Pancreas is normal in s ize. No adrenal nodules. Both kidneys are normal in size, without hydronephrosis or nephrolithiasis . Peritoneum and bowel: Fatty infiltration of the descending and sigmoid colon mirza consistent with c hronic inflammation. Right bowel postoperative change. There are air-fluid levels in minimally dila allie loops of bowel. No free fluid or air. Nodes and vessels: No retroperitoneal or mesenteric adenopathy by size criteria. Aorta and inferior vena cava are normal in size. Miscellaneous: No ventral hernias. PELVIS: Genitourinary: Bladder wall thickness is normal. Miscellaneous: No inguinal hernias or adenopathy. Bones: No suspicious bony lesions. No vertebral body compression fractures. IMPRESSION: 1. Minimally dilated loops of small bowel and remaining colon with air-fluid levels may represent an adynamic ileus or very mild early partial obstruction overall improved since the previous plain film radiographs given differences in technique. 2. Fatty infiltration of the descending and sigmoid colon mirza most consistent with chronic inflamma tion Dictated by: Win Peter M.D. on 07/09/2016 at 21:39 Approved by: Win Peter M.D. on 07/09/2016 at 21:48
[2016-07-09] MEDS ORDERED: HYDROmorphone 1 mg/mL Inj IVPUSH PRN (23:25)
--- NOTE | 2016-07-10 01:48 | NUR ---
Pain Patient complaining of pain 8/. IV Tylenol and Fentanyl patch not managing pain well. Hospitalist contacted and patient was given one time dose of Dilaudid 1mg. Patient asleep in bed. Vitals stable.
[2016-07-10] MEDS: D5 0.9% NaCl + KCl 20 mEq/L 1,000 ML IV SCH ×2 (02:25→12:05)
[2016-07-10] MEDS: Acetaminophen IV 1,000 MG in IV Premix 1 EACH IV PRN ×2 (03:16→10:59)
[2016-07-10 05:20] LABS: BASOPHILS % (AUTO) 0.5 % (0-3); EOSINOPHILS % (AUTO) 3.9 % (0-5); MONOCYTES % (AUTO) 13.5 % (4-12); Mean Corpuscular Hemoglobin 29.6 pg (27.0-35.0); Mean Corpuscular Volume 83.2 fL (81-100); NEUTROPHILS % (AUTO) 60.4 % (40-74); Platelet Count 200 bil/L (150-400)
[2016-07-10 05:45] LABS: Magnesium 1.8 mg/dL (1.6-2.6)
[2016-07-10] MEDS: Promethazine Inj 50 MG in 0.9% Sodium Chloride-Pha MIX 100 ML IV PRN (05:46)
[2016-07-10 06:06] VITALS: BP 148/103; PULSE 83; RESP 20; O2SAT 98
[2016-07-10 08:03] VITALS: BP 137/97; PULSE 89; RESP 18; O2SAT 97
[2016-07-10] MEDS: Famotidine Inj 20 MG in IV Premix 1 EACH IV SCH (08:20)
--- NOTE | 2016-07-10 08:22 | PCM.PNSURG ---
Subjective Date of Service: July 10, 2016 Date of Service: July 10, 2016 Visit Information: Subjective: No acute events overnight. Pt abdominal pain somewhat improved this am. Pt not getting dilaudid. Pt states phenergan helps in nausea in past. Pt appeared comfortable prior to entering room, then starting having pain once examined. Postop General: No Complaints Objective Vital Sign- Last 8 Hours Date Time Temp Pulse Resp B/P Pulse Ox O2 Delivery O2 Flow Rate FiO2 07/10/16 08:03 36.6 89 18 137/97 97 Room Air 07/10/16 06:06 36.4 83 20 148/103 98 Room Air Intake and Output- Last 8 Hour 07/10/16 Cumulative From/Thru 07:00 07/07/16 08:18 - 07/10/16 06:50 Intake Total 1023 ml 5777 ml Output Total 425 ml 5450 ml Balance 598 ml 327 ml Intake Oral 0 ml 0 ml IV Total 1023 ml 5777 ml Output Urine Total 425 ml 4600 ml Gastric Drainage Total 850 ml # Bowel Movements 0 0 General: Oriented X3 Neck: Supple Lungs: Clear to Auscultation Heart: Exam Unremarkable Abdomen: Benign, Soft, Appropriately tender, Non-distended, Normoactive bowel tones Extremities: Distal Pulses Palpable Result Diagram: 07/10/16 0500 07/10/16 0500 Assessment & Plan Impression 40-year-old male with extensive history of abdominal surgeries including terminal ileum and proximal transverse colon resections/anastomosis and 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 Given the patient's extensive history and high likelihood of stricture formation around the site of anastomosis it is likely the patient has a small bowel obstruction most likely from prior adhesions from prior surgery. Other differentials could include obstipation secondary to chronic narcotic use, or cyclical vomiting syndrome for use of marijuana over the last 6-12 months. Patient denies any fever, there is no leukocytosis, and his abdominal pain is likely secondary to the persistent vomiting, suggesting that this is not an infectious process. Patient 's last colonoscopy was 3 years ago and he reportedly underwent patency pill in 2014 to evaluate stricture at anastomotic site but I am unable to find the records at this time. I also question whether there is a drug seeking component in which the pt appears to be comfort prior to a provider coming into the room and once enter, the patient then states he is in pain. Recommendations: - start clear liquid diet. advance to soft low residue diet if tolerate - pain control per hospitalist team - phenergan prn n/v - if pt tolerate PO intake, then ok to d/c home from gi standpoint - pt to f/u with pcp and outpatient pain management consult - consider psych consult re: possible drug seeking component. Problems: Resuscitation Status: CPR: Attempt Resuscitation Jordan Mejia MD July 10, 2016 08:22
[2016-07-10] MEDS ORDERED: HYDROmorphone 1 mg/mL Inj IVPUSH ONE (10:03)
--- NOTE | 2016-07-10 13:24 | NUR ---
NUTRITION ASSESSMENT: ASSESS:40 YO male with history of Crohn's disease with resection of terminal ileum and proximal transverse colon, presents to the ED following 4 days of severe nausea with nonbloody emesis. Patient states this has been a chronic problem. Patient states that he has not had a bowel movement for 2 days and denies any recent diarrhea or hematochezia/melena. Patient denies fever, chills, chest pain, shortness of breath, or changes in urinary habits. Patient does attest to upper respiratory congestion without fever or cough. Patient is also chronic pain patient on oxycodone and OxyContin as an outpatient. Abdominal x-ray did not show definite evidence of obstruction. NG tube placed to relieve nausea. GI following and believes there is likelihood of stricture formation around the site of anastomosis, with a small bowel obstruction most likely from prior adhesions from prior surgery. Other differentials could include obstipation secondary to chronic narcotic use, or cyclical vomiting syndrome for use of marijuana over the last 6-12 months. Patient denies any fever, there is no leukocytosis, and his abdominal pain is likely secondary to the persistent vomiting, suggesting that this is not an infectious process. PMHx:Crohn's disease since 2003 on Humira, followed by Dr Workman; high-grade structuring s/p 5 stricturoplasties of ileum; right hemicolectomy with anastomosis by Dr. Orlando Hood (03/11/03); resection of terminal ileum & proximal transverse colon with anastomosis, repair of enteroenteric fistula, small bowel stricturoplasty, and lysis of adhesions by Dr. Eli Hood (06/11/03); history of multiple small bowel obstructions related to adhesions s/p abdominal exploration and lysis of adhesions by Dr. Eli Hood on and 05/06/05 and 09/29/05; history of colon perforation after colonoscopy 2006; colonoscopy (November 2012) by Dr Workman: Biopsies showed granuloma in random right colon biopsies with some mild crypt architectural distortion, left colon had an erosion and showed chronic colitis that was moderately active. His anastomosis showed ulceration with moderate chronic active inflammation and granulation tissue; IV access procedures; bacteremia (12/10/05); chronic pain with narcotic habituation, followed by [facility] pain clinic; history of MRSA line infection; vertebral osteomyelitis; chronic anemia related to Crohn's; C. difficile colitis; ventricular septal defect with chronic murmur. DIET:NPO / clear liquids x 3 D. LABS: Reviewed. total Bili 1.7, Lipase 9. MEDICATIONS: Reviewed. Phenergan. NUTRITION FOCUSED PHYSICAL ASSESSMENT: GI symptoms / stool: No stool.Josh: 18. Skin Integrity: No issues reported. ANTHROPOMETRICS: Current Wt: 98.0 kgBMI: 28.0 kg/m2.Admit weight: 100 kg. IBW: 83.6 kg (120% IBW) ESTIMATED NEEDS: Calories: 2200 - 2500 kcal (22 - 25 kcal / kg BW) Protein: 80 - 120 g protein (0.8 - 1.2 g / kg BW) Fluid: Approx. 3500 mL (35 mL / kg BW) NUTRITION DIAGNOSIS: 1)Inadequate oral intake related to altered GI function, as evidenced by NPO / clear liquid status with likelihood of small bowel obstruction. INTERVENTION: 1) In the event bowel obstruction not resolved over weekend, TPN recommendation follows. Recommend dextrose 420 g, amino acid 100 g, lipid 45 g (62% D, 18% AA, 20% Lipids), providing 2278 kcal, 100 g protein, sufficient to meet 100% nutrient needs. 2) In the event patient has not eaten the week prior to admission, recommend TPN be initiated at approx. 35% goal macronutrient content. MONITOR/EVALUATE: Diet advance / tolerance, PO intake, labs, GI/nutrition status. Follow up per high nutrition risk guidelines.
--- NOTE | 2016-07-10 14:43 | PCM.DC.MED ---
Discharge Summary Date of Service July 10, 2016 Dates of Hospitalization Date of Hospital Admission July 07, 2016 at 10:33 Date of Discharge: July 10, 2016 Providers: Admitting Physician: Carlo Espinal MD Primary Care Physician: Clark Eldridge MD Attending Physician: Carlo Espinal MD Procedures XRay, CTs & MRIs PROCEDURE: X-RAY ACUTE ABDOMINAL SERIES ([id number]) 1. Small bowel air-fluid levels in the left upper quadrant are nonspecific and may reflect a gastroenteritis or mild segmental ileus. No definite evidence of obstruction. Dictated by: Sung Bray M.D. on 07/07/2016 at 9:02 Brief History 40-year-old male with long history of issues/hospitalization/bowel obstruction secondary to his Crohn's disease whose only self manage his way through multiple partial bowel obstructions was doing so for at least the last 36 hours then today he felt sudden worsening cramping pain that far exceeded what he was going through previously. In addition to this he had not had any significant urine or stool output in the last 36-48 hours. These 2 factors combined made him a lot to come to the emergency room. He had no fever/chills no blood or black in the stool. Does not feel like he is having a Crohn's flare. He is not on any immunologic or other agents to treat Crohn's disease. Currently just narcotics. Hospital Course 40-year-old male with a history of bowel issues secondary to long-standing Crohn 's disease and complications from it presented to the hospital with abdominal pain. Patient was diagnosed with early small bowel obstruction versus ileus. He was treated with nothing by mouth, NG tube, IV fluids, pain medications, nausea medications. Patient required IV Dilaudid for pain control. On the day of discharge patient was able to tolerate diet, he was passing gas, she had a bowel movement the night before. After the patient improved she was discharged home with recommendations to follow up with his primary care provider and corn picker. Patient was seen and examined on the day of discharge Patient Condition @ Discharge: good Discharge Disposition: home Discharge Activity: resume regular activity Driving: Patient was strongly advised against driving when under influence of pain meds or other medication that can cause sedation or decreased reaction. Patient was strongly advised that he must not drink, drive, operative heavy machinery or do anything that requires precise judgement or dexterity within 12 hours of taking the controlled medication that was prescribed to him. Patient was aware that opioids and benzodiasepines are very addictive medications and may cause psychological or physical addiction. Discharge Diet: regular soft diet, heart healthy, low fat, low salt Information Provided to Patient: information about discharge medications Discharge Medications: I discussed with patient medication dosage, usage, goals of therapy, side effects, alternatives. During discharge patient was allert, oriented, able to make own informed decisions. We discussed possible severe side effects, adverse reactions, benefits, risks, alternatives of current and newly prescribed medications and diagnostic procedures. Patient verbalized understanding and agreed to current plan of care and discharge. TIME SPENT IN DISCHARGE ACTIVITY: Face to face activity greater then 30 minutes spent in discharge activity. 1. Discussed with patient re: discharge plan of care/treatment, and follow up care/services. 2. Patient agreed with discharge plan and further plan of care, all questions were answered/addressed, no further questions at the time of discharge. Exam Vital Signs (Last) Date Time Temp Pulse Resp B/P Pulse Ox O2 Delivery O2 Flow Rate FiO2 07/10/16 08:03 36.6 89 18 137/97 97 Room Air Test 07/07/16 09:10 07/10/16 05:00 Lactic Acid Level 0.9mmol/L (0.4-2.0) White Blood Count 6.1th/mm3 (3.8-10.1) Red Blood Count 4.94mil/mm3 (4.40-5.80) Hemoglobin 14.6g/dL (13.8-17.2) Hematocrit 41.1% (41.0-50.0) Mean Corpuscular Volume 83.2fL (81-100) Mean Corpuscular Hemoglobin 29.6pg (27.0-35.0) Mean Corpuscular Hemoglobin Concent 35.5% (32.0-37.0) Red Cell Distribution Width 12.3% (12.3-15.4) Platelet Count 200bil/L (150-400) Neutrophils (%) (Auto) 60.4% (40-74) Lymphocytes (%) (Auto) 21.5% (14-46) Monocytes (%) (Auto) 13.5% (4-12) Eosinophils (%) (Auto) 3.9% (0-5) Basophils (%) (Auto) 0.5% (0-3) Sodium Level 138mEq/L (134-144) Potassium Level 4.1mEq/L (3.5-5.2) Chloride Level 100mEq/L (97-108) Carbon Dioxide Level 24mmol/L (18-29) Blood Urea Nitrogen 10mg/dL (6-24) Creatinine 0.78mg/dL (0.76-1.27) Estimat Glomerular Filtration Rate 117mL/min (>59) Glucose Level 92mg/dL (60-99) Calcium Level 8.8mg/dL (8.5-10.1) Magnesium Level 1.8mg/dL (1.6-2.6) Total Bilirubin 1.7mg/dL (0.0-1.2) Aspartate Amino Transf (AST/SGOT) 14U/L (0-50) Alanine Aminotransferase (ALT/SGPT) 12U/L (0-44) Alkaline Phosphatase 91U/L (25-150) Total Protein 6.8g/dL (6.4-8.4) Albumin 4.0g/dL (3.4-5.0) Lipase 9U/L (13-60) Discharge Medications Discharge Medications Fentanyl 50 mcg/hr Patch (Fentanyl 50 mcg/hr Patch) 50 mcg/hr Patch.td72 1 PATCH TRANSDERM Q2DAY (Reported) Multivitamin (Once Daily) 1 Each Tablet 1 EACH PO DAILY (Reported) As needed oxyCODONE (oxyCODONE) 5 Mg Capsule 15 MG PO 5XD PRN PRN For Pain (Reported) Jun Hopkins MD July 10, 2016 14:43
--- NOTE | 2016-07-10 16:02 | NUR ---
Discharge Pt discharged at 1542 friend will p/u outside. Pt A&O x 3, LI, VSS, pain controlled 07/24 [address] patch in place. Pt had small BM yesterday and is passing gas and was able to tolerate clears and advance to crackers, but declined to eat anymore and was wanting to leave. Port de-accessed by IV therapy. Pt has discharge instructions and care notes, no new rx's given. Pt understands if symptoms return he should come back to ED. Pt has all belongings and all questions answered.
== END 2016-07-10 15:42 | disposition home or self-care (01) | DRG 389 ==
LOC: SED 08:14 → OSC 10:33
PROVIDERS: ADMIT Hospitalist; ATTEND Hospitalist
PROC: 0D9670Z Drainage of Stomach with Drainage Device, Via Natural or Artificial Opening (ICD-10-PCS; principal; 2016-07-07)
DX: K56.60 Unspecified intestinal obstruction (principal); F11.20 Opioid dependence, uncomplicated; K50.90 Crohn's disease, unspecified, without complications; K56.7 Ileus, unspecified; Z86.14 Personal history of Methicillin resistant Staphylococcus aureus infection; Z90.49 Acquired absence of other specified parts of digestive tract